=== PATIENT | male | born 1975 | race Two or more races ===

== ENCOUNTER 2018-07-14 04:11 | Emergency (ER) | payer MEDICAID ==
[~2018-07-14] VITALS: Ht 167.6 cm; Wt 75.0 kg
[2018-07-14 04:17] VITALS: BP 142/82
== END 2018-07-14 05:01 | disposition home or self-care (01) ==
LOC: ER 04:14
DX: R45.1 Restlessness and agitation (principal); Z76.5 Malingerer [conscious simulation]; Z59.0 Homelessness
CPT/HCPCS: 99281